=== PATIENT | female | born 1955 | race Caucasian/White ===

== ENCOUNTER 2016-09-19 10:03 | Outpatient (CLI) | payer OTHER | END 2016-09-19 10:04 | disposition home or self-care (01) | DX: M85.89 Other specified disorders of bone density and structure, multiple sites (principal); Z87.898 Personal history of other specified conditions ==

== ENCOUNTER 2016-09-19 10:06 | Outpatient (CLI) | payer OTHER | END 2016-09-19 10:07 | disposition home or self-care (01) | DX: Z12.31 Encounter for screening mammogram for malignant neoplasm of breast (principal) ==

== ENCOUNTER 2018-04-01 15:33 | Outpatient (CLI) | payer OTHER ==
--- NOTE | 2018-04-06 10:58 | Mammography Report ---
Reason: ANNUAL SCREENING Procedure Date: 04/01/2018 Accession Number: [id number] / [id number] Procedure: OLU - Screening Mammo w/Lamonte CPT Code: FULL RESULT: EXAM: Screening Mammo w/Lamonte DATE: 04/01/2018 3:55 PM CLINICAL HISTORY: Routine screening. No reported personal history of breast cancer. Family history in great grandmother at age 24. TECHNIQUE: Bilateral CC and MLO views were obtained. COMPARISON: 09/19/2016 through 04/04/2009. FINDINGS: The breasts demonstrate extremely dense parenchyma bilaterally, limiting the sensitivity of mammography. There is contrast artifacts rendering the 2-D reconstruction of the right cc view unreadable. Exam is further limited by skinfold artifacts on both MLO views. There is chronic difficulty obtaining posterior tissues on MLO views and CC exams. IMPRESSION: Incomplete examination RECOMMENDATION: Bilateral technical recall. BI-RADS CATEGORY 0: Incomplete examination STANDARD QUALIFYING STATEMENTS: 1. This examination was not reviewed with the aid of Computer-Aided Detection (CAD). 2. A negative or benign imaging report should not preclude biopsy if clinically suspicious findings are present. 3. Dense breasts may obscure an underlying neoplasm. 4. This examination was reviewed with the aid of 3D breast imaging (tomosynthesis).
== END 2018-04-01 15:34 | disposition home or self-care (01) ==
LOC: DI 15:33
PROVIDERS: ATTEND Nurse Practitioner Family
DX: Z12.31 Encounter for screening mammogram for malignant neoplasm of breast (principal); R92.2 Inconclusive mammogram
CPT/HCPCS: 77063; 77067

== ENCOUNTER 2018-04-15 13:15 | Outpatient (CLI) | payer OTHER ==
[2018-04-15] MEDS ORDERED: ALBUTEROL NEB 2.5 MG/3 ML INH ONE (14:00)
== END 2018-04-15 13:16 | disposition home or self-care (01) ==
LOC: RT 13:15
PROVIDERS: ATTEND Nurse Practitioner Family
DX: R06.83 Snoring (principal); R53.83 Other fatigue; R06.89 Other abnormalities of breathing
CPT/HCPCS: 94060

== ENCOUNTER 2018-05-01 11:28 | Outpatient (CLI) | payer OTHER ==
--- NOTE | 2018-05-01 15:17 | Mammography Report ---
Reason: TECH REPEAT - NO CHARGE - ROUTINE MAMMO Procedure Date: 05/01/2018 Accession Number: [id number] / [id number] Procedure: OLU - Screening Mammo w/Lamonte CPT Code: FULL RESULT: EXAM: Screening Mammo w/Lamonte DATE: 05/01/2018 11:56 AM CLINICAL HISTORY: Technical recall from screening for artifact and skin folds. History of nulliparity. History of early menses. TECHNIQUE: Bilateral CC and MLO views were obtained. COMPARISON: 04/01/2018 through 04/04/2009. FINDINGS: The breasts demonstrate extremely dense parenchyma bilaterally, limiting the sensitivity of mammography. No suspicious masses, clustered microcalcifications, or regions of architectural distortion are identified. IMPRESSION: Negative examination RECOMMENDATION: Routine annual screening unless otherwise clinically indicated. BIRADS CATEGORY 1: Negative STANDARD QUALIFYING STATEMENTS: 1. This examination was not reviewed with the aid of Computer-Aided Detection (CAD). 2. A negative or benign imaging report should not preclude biopsy if clinically suspicious findings are present. 3. Dense breasts may obscure an underlying neoplasm. 4. This examination was reviewed with the aid of 3D breast imaging (tomosynthesis).
== END 2018-05-01 11:29 | disposition home or self-care (01) ==
LOC: DI 11:28
PROVIDERS: ATTEND Nurse Practitioner Family
DX: Z12.31 Encounter for screening mammogram for malignant neoplasm of breast (principal)
CPT/HCPCS: 77063; 77067

== ENCOUNTER 2020-07-25 15:10 | Outpatient (CLI) | payer MEDICARE, OTHER ==
--- NOTE | 2020-07-26 10:06 | Mammography Report ---
BILATERAL DIGITAL SCREENING MAMMOGRAM 3D/2D: 07/25/2020 CLINICAL: Routine screening. Comparison is made to exams dated: 05/01/2018 mammogram, 04/01/2018 mammogram, 09/19/2016 mammogram, an d 11/04/2013 mammogram - [facility]. The tissue of both breasts is predominantly fa tty. No significant masses, calcifications, or other findings are seen in either breast. There has been no significant interval change. IMPRESSION: NEGATIVE There is no mammographic evidence of malignancy. A 1 year screening mammogram is recommended. This exam was interpreted at Station ID: [id number]. NOTE: For mammograms, a report in lay terms will be sent to the patient. Approximately 15% of breast malignancies will not be visualized mammographically. In the management of a palpable breast mass, a negative mammogram must not discourage biopsy of a clinically suspicious lesion. Electronically Signed By: Elpidio Jurado acr/penrad:07/25/2020 16:40:25 ACR BI-RADS Category 1: Negative 3341F PARENCHYMAL PATTERN: (F) - The breast(s) demonstrate(s) diffuse fatty replacement. BI-RADS CATEGORY: (1) - 1 RECOMMENDATION: (ANNUAL) - Recommend routine annual screening mammography. [id number] 1 year screening LATERALITY: (B)
== END 2020-07-25 15:11 | disposition home or self-care (01) ==
LOC: DI 15:10
PROVIDERS: ATTEND Family Medicine
DX: Z12.31 Encounter for screening mammogram for malignant neoplasm of breast (principal)

== ENCOUNTER 2020-10-31 13:45 | Outpatient (CLI) | payer OTHER ==
--- NOTE | 2020-10-31 14:51 | MRI Report ---
PROCEDURE: Cervical Spine W/O INDICATIONS: Chronic neck pain TECHNIQUE: Noncontrast sagittal T1 spin echo and T2 fast spin echo, sagittal STIR, foraminal oblique sagittal T2 fast spin echo, and axial gradient echo or T2 fast spin echo through the cervical spine. COMPARISON: None. FINDINGS: Image quality: Excellent. Alignment and Curvature: Normal configuration of the craniocervical junction. Cervical spine vertebr al body height and alignment are normal. There is no listhesis. Bone Marrow: No suspicious focal marrow signal abnormality. Minimal discogenic marrow edema at the op posing endplates from C3-C4 through C6-C7. Spinal Cord: Visualized spinal cord has normal size and signal. No cerebellar tonsillar herniation. Regional Soft Tissues: No paravertebral masses. Prevertebral soft tissues are normal in thickness. C2-C3: No spinal canal or neural foraminal stenosis. C3-C4: Posterior disc-osteophyte complex flattens the ventral cord in the central zone. Facet and u ncovertebral hypertrophy contribute to mild neural foraminal narrowing on the right. C4-C5: Posterior disc-osteophyte complex flattens the ventral cord slightly. Facet and uncovertebral hypertrophy contribute to mild bilateral neural foraminal stenosis C5-C6: Posterior disc-osteophyte complex flattens the ventral cord slightly. Facet and uncovertebral hypertrophy contribute to moderate bilateral neural foraminal stenosis. C6-C7: Posterior disc-osteophyte complex flattens the ventral cord slightly. Facet and uncovertebral hypertrophy contribute to moderate left and mild right neural foraminal stenosis. C7-T1: The spinal canal or neural foraminal stenosis. IMPRESSION: Multilevel multifactorial degenerative changes producing varying degrees of neural foraminal stenosis , moderate bilaterally at and C5-C6 and on the left C6-C7. Mild spinal canal stenosis from C3-C4 through C6-C7. Reviewed by: Kristian Haney MD on 10/31/2020 2:50 PM PDT Approved by: Kristian Haney MD on 10/31/2020 2:50 PM PDT Station ID: [id number]
== END 2020-10-31 13:46 | disposition home or self-care (01) ==
LOC: DI 13:45
PROVIDERS: ATTEND Family Medicine
DX: M47.812 Spondylosis without myelopathy or radiculopathy, cervical region (principal); M50.31 Other cervical disc degeneration, high cervical region; M48.02 Spinal stenosis, cervical region

== ENCOUNTER 2021-04-12 06:36 | Emergency (ER) | payer MEDICARE ==
--- NOTE | 2021-04-12 07:24 | ED Physician Documentation ---
PD HPI NECK PAIN - Stated complaint Stated Complaint: NECK PX - Chief complaint Chief Complaint: Ext Problem - History obtained from History obtained from: Patient - History of Present Illness Timing - onset: How many days ago (has had chronic neck and back pain for years with eval by spine surgeon in the past. Had recent repeat MRI cervical with DDD and central stenosis. Had been on oxycodone regularly and then PMD changed to Methadone about 5-6 months ago. She stopped taking this 12 days ago with worse pain since.) Timing - duration: Days (12 days of increasing pain in area of chronic pain. No new injury.) Timing - details: Gradual onset, Still present Location: Lower, Right, Left Quality: Pain, Aching Associated symptoms: Numbness (both arms chronically). No: Fever, Weakness Worsened by: Movement Contributing factors: No: Lifting, Twisting, Trauma Similar symptoms before: Diagnosis (chronic neck pain with radicular syptoms) Recently seen: Clinic (has had regular appts and scripts from PMD for pain meds, with JEN showing just regular meds and no extra scripts.) Review of Systems Constitutional: denies: Fever, Chills Nose: denies: Rhinorrhea / runny nose, Congestion Throat: denies: Sore throat Respiratory: denies: Cough GI: denies: Nausea, Vomiting, Diarrhea Skin: denies: Rash, Lesions Musculoskeletal: reports: Neck pain. denies: Back pain Neurologic: reports: Numbness (both arms). 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 : None HEENT: None Psych: Depression Musculoskeletal: None, Other (chronic neck pain) Derm: None - Past Surgical History Past Surgical History: Yes /EXCHANGE ARCHITECT: Dilation and currettage - Present Medications Home Medications: Ambulatory Orders Medication Instructions Recorded Confirmed Lidocaine Patch 5% [Lidoderm Patch] 1 patch TOP DAILY PRN #10 patch 04/12/21 Meloxicam [Mobic] 7.5 mg PO BID 10 Days #20 tablet 04/12/21 Oxycodone HCl 10 mg PO Q8H PRN #12 tablet 04/12/21 dexAMETHasone [Decadron] 4 mg PO DAILY #5 tablet 04/12/21 - Allergies Allergies/Adverse Reactions: Allergies Allergy/AdvReac Type Severity Reaction Status Date / Time No Known Drug Allergies Allergy Verified 04/12/21 06:47 - Social History Does the pt smoke?: Yes Smoking Status: Current every day smoker Does the pt drink ETOH?: Yes Does the pt have substance abuse?: No - Immunizations Immunizations are current?: No - POLST Patient has POLST: No PD ED PE NORMAL - Vitals Vital signs reviewed: Yes - General General: Alert and oriented X 3, Well developed/nourished, Other (seems tearful about neck pain itself and also expresses frustration about chronic pain. ) - Neck Neck: Supple, no meningeal sign, No adenopathy, Other (tender paracervical muscles right more than left. ) - Cardiac Cardiac: RRR, No murmur - Respiratory Respiratory: Clear bilaterally - Derm Derm: Normal color, Warm and dry, No rash - Extremities Extremities: No tenderness to palpate, No edema - Neuro Neuro: Alert and oriented X 3, No motor deficit, No sensory deficit, Normal speech Results - Vitals Vitals: Vital Signs - 24 hr 04/12/21 04/12/21 06:44 08:47 Temperature 36.6 C Heart Rate 92 68 Respiratory 17 16 Rate Blood Pressure 148/72 H 120/62 O2 Saturation 99 97 Oxygen O2 Source Room air PD MEDICAL DECISION MAKING - ED course Complexity details: reviewed old records (JEN shows regular scripts for chronic pain without any other than PMD. ), reviewed results (recent MRI cervical report reviewed. ), considered differential (chronic pain with exacerbation, but also contributed by not having regular pain meds now. I can script for short term pain meds for her acute exac, but to contact/appt with PMD regarding ongoing pain meds. ), d/w patient Departure - Departure Disposition: 01 Home, Self Care Clinical Impression: Chronic neck pain Condition: Stable Record reviewed to determine appropriate education?: Yes Instructions: ED Neck Back Pain General Follow-Up: Dev Plaza MD [Primary Care Provider] - Prescriptions: dexAMETHasone [Decadron] 4 mg PO DAILY #5 tablet Lidocaine Patch 5% [Lidoderm Patch] 1 patch TOP DAILY PRN #10 patch PRN Reason: pain Meloxicam [Mobic] 7.5 mg PO BID 10 Days #20 tablet Oxycodone HCl 10 mg PO Q8H PRN #12 tablet PRN Reason: Pain Comments: Follow-up with Dr. Plaza regarding ongoing pain management. You could ask for referral to other neck specialist. The reading of your MRI report is not obviously having a surgical solution they would need to talk to contract law specialist to better evaluate. It sounds like you have had some spine specialists and pain clinic evaluations in the past. Long-acting pain medications are the most appropriate such as the methadone you had been on. These would need to be prescribed by your primary care provider. Out of the emergency room I can provide short acting short-term pain medications for the exacerbation of your pain. I prescribed Oxycodone as you have taken in the past. I chose a higher strength 10 mg, which is meant to work a little better but also last longer. Take it just 2-3 times daily. Short-term we can also add in some anti-inflammatories and topical lidocaine patches to see if they will help as well. Typically that would not be an ongoing part of the pain management necessarily as there is typically not an ongoing inflammation per se. Worse pain currently may have some inflammatory component. The topical lidocaine patch in the area may have some effect as well as the nerves run not far underneath. Use the Decadron steroid daily for the next 5 days for inflammation and then changed to the meloxicam twice daily for 10 days. Take these with food. Again follow-up with Dr. Plaza regarding ongoing care of the pains. I transmitted your prescriptions to [facility] in [place]. I am prescribing a short course of narcotic pain medication for you. These are potentially dangerous and addictive medications that should be used carefully. These medications may constipate you. Take an [id number]-[id number] stool softener such as docusate twice daily with plenty of water while taking these medications. If you go 24 hours without a bowel movement, take [id number] MiraLAX, per package instructions. Do not drink or drive while taking these medications. If you received narcotic or sedating medications while in the emergency depart ment do not drive for 24 hours. Store this medication in a safe, secure place and out of reach of children. It is a violation of federal law to give or sell this medication to another person or to use in a manner other than prescribed. The ED will not refill narcotic prescriptions, including prescriptions lost or stolen. You can dispose of unwanted medications at the [facility]'s office or at several pharmacies such as [facility]. Discharge Date/Time: 04/12/21 08:48
[2021-04-12] MEDS: KETOROLAC 30 MG/ML VIAL IM STA (08:00)
[2021-04-12] MEDS: DEXAMETHASONE 10 MG/ML VIAL PO STA (08:00)
[2021-04-12] MEDS: HYDROmorphone 1 MG/ML CARPUJECT IM STA (08:01)
[2021-04-12] MEDS: ACETAMINOPHEN 325 MG TABLET PO STA (08:01)
[2021-04-12] MEDS: CHERRY SYRUP 10 ML UDC PO ONE (08:01)
[2021-04-12 08:48] VITALS: BP 120/62
== END 2021-04-12 08:48 | disposition home or self-care (01) ==
LOC: ED 06:36
DX: M54.2 Cervicalgia (principal); G89.29 Other chronic pain; F17.200 Nicotine dependence, unspecified, uncomplicated
CPT/HCPCS: 96372; 99283; 99284; A9270; J1170

== ENCOUNTER 2021-09-07 09:23 | Outpatient (CLI) | payer MEDICARE ==
[2021-09-07 14:51] LABS: BASOPHILS # (AUTO) 0.1 10^3/uL (0.0-0.1); BASOPHILS % (AUTO) 1.4 %; EOSINOPHILS # (AUTO) 0.2 10^3/uL (0.0-0.7); EOSINOPHILS % (AUTO) 2.9 %; HCT - HEMATOCRIT 39.8 % (37.0-47.0); HGB - HEMOGLOBIN 13.1 g/dL (12.0-16.0); LYMPHOCYTES # (AUTO) 1.8 10^3/uL (1.5-3.5); LYMPHOCYTES % (AUTO) 35.5 %; MEAN CORPUSCULAR HEMOGLOBIN 31.4 pg (27.0-31.0); MEAN CORPUSCULAR HGB CONC 32.9 g/dL (32.0-36.0); MEAN CORPUSCULAR VOLUME 95.4 fL (81.0-99.0); MEAN PLATELET VOLUME 10.4 fL (7.9-10.8); MONOCYTES # (AUTO) 0.3 10^3/uL (0.0-1.0); MONOCYTES % (AUTO) 5.3 %; NEUTROPHILS # (AUTO) 2.8 10^3/uL (1.5-6.6); NEUTROPHILS % (AUTO) 54.7 %; PLT - PLATELET COUNT 229 10^3/uL (130-450); RED BLOOD COUNT 4.17 10^6/uL (4.20-5.40); RED CELL DISTRIBUTION WIDTH 12.5 % (12.0-15.0); WHITE BLOOD COUNT 5.1 x10^3/uL (4.8-10.8)
[2021-09-07 15:23] LABS: ALBUMIN/GLOBULIN RATIO 1.5 (1.0-2.2); ALKALINE PHOSPHATASE 49 IU/L (42-121); ALT ALANINE AMINOTRANSFERASE 24 IU/L (10-60); AST ASPARTATE AMINOTRANSFERASE 21 IU/L (10-42); BILIRUBIN,TOTAL 0.8 mg/dL (0.2-1.0); BUN - BLOOD UREA NITROGEN 14 mg/dL (6-20); CALCIUM 9.6 mg/dL (8.5-10.3); CARBON DIOXIDE - CO2 28 mmol/L (21-32); CHLORIDE 98 mmol/L (101-111); CHOL/HDL RATIO 4.4 (<4.4); CHOLESTEROL 254 mg/dL; CREATININE 0.8 mg/dL (0.4-1.0); GFR - MDRD 72 (>89); GLUCOSE 112 mg/dL (70-100); HDL CHOLESTEROL 58 mg/dL; LDL CHOLESTEROL,CALCULATED 171 mg/dL; LDL/HDL RATIO 2.9 (<4.4); POTASSIUM 4.1 mmol/L (3.5-5.0); SODIUM 137 mmol/L (135-145); TOTAL PROTEIN 6.6 g/dL (6.7-8.2); TRIGLYCERIDES 123 mg/dL; VLDL CHOLESTEROL 25 mg/dL
[2021-09-07 15:28] LABS: CRP - C-REACTIVE PROTEIN < 1.0 mg/dL (0-1.0)
[2021-09-08 10:48] LABS: HEPATITIS C ANTIBODY NON-REACTIVE (NON-REACTIVE)
== END 2021-09-07 09:24 | disposition home or self-care (01) ==
LOC: LAB.S 09:23
PROVIDERS: ATTEND Physician Assistant
DX: R53.83 Other fatigue (principal); Z13.220 Encounter for screening for lipoid disorders; Z11.59 Encounter for screening for other viral diseases
CPT/HCPCS: 36415; 80053; 80061; 83721; 84443; 85025; 85651; 86140; 86803

== ENCOUNTER 2022-01-18 14:06 | Outpatient (CLI) | payer MEDICARE ==
--- NOTE | 2022-01-18 15:32 | DEXA Report ---
PROCEDURE: Dexa Spine and/or Hip INDICATIONS: OSTEOPENIA TECHNIQUE: Dual energy x-ray absorptiometry (DXA) was performed on a IIIMOBI System. Regions measur ed are the AP Spine, femoral neck, and if needed forearm. COMPARISON: DEXA 09/19/2016 FINDINGS: Lumbar Spine: Bone Mineral Density 0.912 g/cm/cm,T score -2.2, compared to -1.7 Left Hip: Bone Mineral Density 0.819 g/cm/cm,T score -1.5, unchanged Left Femoral Neck: Bone Mineral Density 0.877 g/cm/cm, T score -1.2, -0.9 (T score greater or equal to -1.0: NORMAL) (T score from -1.1 to -2.4: OSTEOPENIA) (T score less than or equal to -2.5 to: OSTEOPOROSIS) Impression: Moderate to severe osteopenia within the lumbar spine, mild in the femoral neck progressive compared to prior exam. Patients with diagnosis of osteoporosis or osteopenia should have regular bone mineral density assess ment. For those eligible for Medicare, routine testing is allowed once every 2 years. Testing frequ ency can be increased for patients who have rapidly progressing disease or for those who are receivin g medical therapy to restore bone mass. Reviewed by: Agnes Hill MD on 01/18/2022 3:30 PM PDT Approved by: Agnes Hill MD on 01/18/2022 3:30 PM PDT Station ID: [id number]
== END 2022-01-18 14:07 | disposition home or self-care (01) ==
LOC: DI 14:06
PROVIDERS: ATTEND Family Medicine
DX: M85.88 Other specified disorders of bone density and structure, other site (principal)

== ENCOUNTER 2023-04-16 09:44 | Outpatient (CLI) | payer MEDICARE ==
--- NOTE | 2023-04-18 09:33 | Mammography Report ---
BILATERAL DIGITAL SCREENING MAMMOGRAM 3D/2D: 04/16/2023 CLINICAL: Routine screening. Comparison is made to exams dated: 07/25/2020 mammogram, 05/01/2018 mammogram, and 09/19/2016 mammogram - [facility]. Both breasts are extremely dense, which lowers the sensitivity of mammography (category d />75% gland ular tissue). No significant masses, calcifications, or other findings are seen in either breast. There has been no significant interval change. IMPRESSION: NEGATIVE There is no mammographic evidence of malignancy. A 1 year screening mammogram is recommended. Based on the Tyrer Cuzick model (a risk assessment model) the patients lifetime risk is 12.2% and he r 10 year risk is 6.5%. According to the ACR, ACS, and NCCN guidelines, an annual breast MRI exam gris ng with mammogram is recommended if the patients lifetime risk is 20% or greater. This exam was interpreted at Station ID: [id number]. NOTE: For mammograms, a report in lay terms will be sent to the patient. Approximately 15% of breast malignancies will not be visualized mammographically. In the management of a palpable breast mass, a negative mammogram must not discourage biopsy of a clinically suspicious lesion. Electronically Signed By: Harpreet hernandez/fam:04/16/2023 15:57:49 letter sent: No_Letter ACR BI-RADS Category 1: Negative 3341F PARENCHYMAL PATTERN: (VD) - The breast(s) demonstrate(s) extremely dense parenchyma, limiting the sen sitivity of mammography. BI-RADS CATEGORY: (1) - 1 Mammogram [id number] 1 year screening LATERALITY: (B)
== END 2023-04-16 09:45 | disposition home or self-care (01) ==
LOC: DI.S 09:44
PROVIDERS: ATTEND Nurse Practitioner Family
DX: Z12.31 Encounter for screening mammogram for malignant neoplasm of breast (principal); R92.30 Dense breasts, unspecified

== ENCOUNTER 2023-06-06 09:26 | Outpatient (CLI) | payer MEDICARE ==
--- NOTE | 2023-06-06 10:05 | XRAY Report ---
PROCEDURE: Chest 2V INDICATIONS: DYSPNEA ON EXERTION TECHNIQUE: 2 views of the chest were acquired. COMPARISON: Chest x-ray, 06/21/2014. FINDINGS: Surgical changes and devices: None. Lungs and pleura: Hyperinflation consistent with COPD. No pleural effusions or pneumothorax. Lungs are clear. Mediastinum: Mediastinal contours appear normal. Heart size is normal. Bones and chest wall: No suspicious bony lesions. Mild chronic compression fracture of T8. Overlyin g soft tissues appear unremarkable. IMPRESSION: 1. No acute cardiopulmonary process. 2. COPD. 3. Mild compression fracture of T8. Reviewed by: Kelvin Hendrix MD on 06/06/2023 10:03 AM [facility] Approved by: Kelvin Hendrix MD on 06/06/2023 10:03 AM [facility] Station ID: [id number]
== END 2023-06-06 09:27 | disposition home or self-care (01) ==
LOC: DI.S 09:26
PROVIDERS: ATTEND Nurse Practitioner Family
DX: J44.9 Chronic obstructive pulmonary disease, unspecified (principal); M48.54XA Collapsed vertebra, not elsewhere classified, thoracic region, initial encounter for fracture

== ENCOUNTER 2023-06-25 07:54 | Outpatient (CLI) | payer MEDICARE ==
[2023-06-25] MEDS ORDERED: ALBUTEROL 1 PUFF INH STA (09:50)
== END 2023-06-25 07:55 | disposition home or self-care (01) ==
LOC: RT 07:54
PROVIDERS: ATTEND Nurse Practitioner Family
DX: R06.09 Other forms of dyspnea (principal); F17.200 Nicotine dependence, unspecified, uncomplicated
CPT/HCPCS: 94060; 94729

== ENCOUNTER 2023-07-14 06:24 | Day surgery (SDC) | payer MEDICARE ==
[2023-07-14] MEDS: LACTATED RINGERS 1,000 ML IV ONE (06:40)
[2023-07-14] MEDS ORDERED: PROPOFOL 500 MG/50 ML 500 MG/50 ML VIAL ONE (06:59)
--- NOTE | 2023-07-14 06:59 | ANESTHESIA ---
Pre-Anesthesia VS, & Labs - Diagnosis screening - Procedure colonoscopy Vital Signs: Temp Pulse Resp BP Pulse Ox O2 Flow Rate 36.4 C L 89 12 136/68 H 100 07/14/23 06:40 07/14/23 06:40 07/14/23 06:40 07/14/23 06:40 07/14/23 06:40 Height: 5 ft 6 in Weight (kg): 51.6 kg Body Mass Index: 18.3 BMI Classification: Underweight - NPO Last Fluid Intake: am prep - Is Patient ?: No - Lab Results Lab results reviewed: Yes Home Medications and Allergies Home Medications: Ambulatory Orders Lamotrigine [Lamictal ([place])] 1 cap PO DAILY 07/11/23 Methadone [Methadone Hcl] 5 mg PO BID 07/11/23 Lamotrigine [Lamictal ([place])] 1 cap PO DAILY 07/11/23 Methadone [Methadone Hcl] 5 mg PO BID 07/11/23 Allergies/Adverse Reactions: Allergies Allergy/AdvReac Type Severity Reaction Status Date / Time No Known Drug Allergies Allergy Verified 04/12/21 06:47 Anes History & Medical History - Anesthetic History Anesthesia Complications: reports: No previous complications Family history of Anesthesia Complications: Denies Family history of Malignant Hyperthermia: Denies - Medical History Cardiovascular: reports: None Pulmonary: reports: COPD Gastrointestinal: reports: Colon polyps Urinary: reports: Chronic bladder infection Neuro: reports: None Musculoskeletal: reports: Osteoporosis Endocrine/Autoimmune: reports: None Blood Disorders: reports: None Skin: reports: None Smoking Status: Current every day smoker - Surgical History General: reports: Colonoscopy Gynecologic: reports: Dilation and currettage Exam General: Alert, Oriented x3, Cooperative Dental: WNL Mouth Openin Fingerbreadth Neck Mobility: Normal Mallampati classification: II Thyromental Distance: 4-6 cm Respiratory: Lungs clear, Normal breath sounds, No respiratory distress Cardiovascular: Regular rate Neurological: Normal speech Mental/Cognitive Status: Alert/Oriented X3, Normal for patient Cognitive Status: Within normal limits Plan Anesthesia Type: Total IV Consent for Procedure(s) Verified and Reviewed: Yes Code Status: Attempt Resuscitation ASA classification: 2-Mild systemic disease Is this case an emergency?: No
[2023-07-14] MEDS ORDERED: MIDAZOLAM 2 MG/2 ML VIAL ONE (07:02)
[2023-07-14] MEDS: LACTATED RINGERS 450 ML IV ONE (08:06)
[2023-07-14 08:27] VITALS: O2SAT 100
--- NOTE | 2023-07-14 08:43 | ANESTHESIA POST OP EVALUATION ---
Anesthesia Post Eval - Post Anesthesia Eval Vitals: Last Vital Signs Temp 36.0 C L 07/14/23 08:20 Pulse 66 07/14/23 08:20 Resp 13 07/14/23 08:20 BP 119/57 L 07/14/23 08:20 Pulse Ox 100 07/14/23 08:20 O2 Flow Rate CV Function Including HR & BP: Stable Pain Control: Satisfactory Nausea & Vomiting: Negative Mental Status: Baseline Respiratory Status: Airway Patent Hydration Status: Satisfactory Anesthesia Complications: None
[2023-07-14 08:46] VITALS: BP 124/53
== END 2023-07-14 06:25 | disposition home or self-care (01) ==
LOC: SDS 06:24
PROVIDERS: ATTEND Surgery
DX: Z12.11 Encounter for screening for malignant neoplasm of colon (principal); K57.30 Diverticulosis of large intestine without perforation or abscess without bleeding; K64.8 Other hemorrhoids; J45.909 Unspecified asthma, uncomplicated; Z87.891 Personal history of nicotine dependence
CPT/HCPCS: G0121; J7120

== ENCOUNTER 2024-02-06 08:29 | Outpatient (CLI) | payer MEDICARE ==
--- NOTE | 2024-02-06 18:37 | DEXA Report ---
PROCEDURE: Dexa Spine and/or Hip INDICATIONS: POST MENOPAUSAL TECHNIQUE: Dual energy x-ray absorptiometry (DXA) was performed on a [employer] System. Regions measur ed are the AP Spine, femoral neck, and if needed forearm. COMPARISON: DEXA the 2621 FINDINGS: Lumbar Spine: Bone Mineral Density: 0.903 g/cm/cm,T score: -2.3. Compared to -2.2 Left Femoral Neck: Bone Mineral Density: 0.924 g/cm/cm, T score: -0.8, compared to -1.2. Left Hip: Bone Mineral Density: 0.804 g/cm/cm,T score: -1.6, compared to -1.5. FRAX risk factors: None given. 10 year risk of major osteoporotic fracture: 11.7% major osteoporotic fracture = hip, clinical vertebral, proximal humerus, distal forearm 10 year risk of hip fracture: 1.7% (T score greater or equal to -1.0: NORMAL) (T score from -1.1 to -2.4: OSTEOPENIA) (T score less than or equal to -2.5 to: OSTEOPOROSIS) Impression: By WHO criteria, this patient has severe osteopenia in the lumbar spine minimally progressive. Mild i mproved bone mineral density in the left femoral neck. Patients with diagnosis of osteoporosis or osteopenia should have regular bone mineral density assess ment. For those eligible for Medicare, routine testing is allowed once every 2 years. Testing frequ ency can be increased for patients who have rapidly progressing disease or for those who are receivin g medical therapy to restore bone mass. Reviewed by: Agnes Hill MD on 02/06/2024 6:36 PM PDT Approved by: Agnes Hill MD on 02/06/2024 6:36 PM PDT Station ID: [id number]
== END 2024-02-06 08:30 | disposition home or self-care (01) ==
LOC: DI 08:29
PROVIDERS: ATTEND Nurse Practitioner Family
DX: M85.89 Other specified disorders of bone density and structure, multiple sites (principal); Z78.0 Asymptomatic menopausal state